=== PATIENT | male | born 1930 | race Caucasian/White ===

== ENCOUNTER 2018-05-18 12:48 | Day surgery (SDC) | payer OTHER ==
[~2018-05-18] VITALS: Ht 165.1 cm; Wt 70.3 kg
[2018-05-18] MEDS ORDERED: ALLO100 (15:23)
[2018-05-18] MEDS ORDERED: METO25ER (15:23)
[2018-05-18] MEDS ORDERED: TIOT18 (15:24)
[2018-05-18] MEDS ORDERED: FURO100EL (15:24)
[2018-05-18] MEDS ORDERED: BENZ100A (15:24)
[2018-05-18] MEDS ORDERED: TRAM50 (15:24)
[2018-05-18] MEDS ORDERED: GUAI600T33 (15:24)
[2018-05-18] MEDS ORDERED: ATOR10 (15:24)
[2018-05-18] MEDS ORDERED: NITR6.5ER (15:25)
[2018-05-18] MEDS ORDERED: POLYOX WSR-3011 GM (15:25)
[2018-05-18] MEDS ORDERED: XARELTO1 EACH (15:25)
[2018-05-18] MEDS ORDERED: ALBU2.5V5 (15:25)
== END 2018-05-18 16:29 | disposition home or self-care (01) ==
LOC: ORSCSDS 12:48
PROVIDERS: Ophthalmology
PROC: 08RJ3JZ Replacement of Right Lens with Synthetic Substitute, Percutaneous Approach (ICD-10-PCS; principal; 2018-05-18 14:00)
DX: H25.11 Age-related nuclear cataract, right eye (principal); I10 Essential (primary) hypertension; I25.10 Atherosclerotic heart disease of native coronary artery without angina pectoris; I48.91 Unspecified atrial fibrillation; Z95.0 Presence of cardiac pacemaker; E10.36 Type 1 diabetes mellitus with diabetic cataract; J44.9 Chronic obstructive pulmonary disease, unspecified; Z87.891 Personal history of nicotine dependence; Z79.899 Other long term (current) drug therapy; Z79.4 Long term (current) use of insulin
CPT/HCPCS: 82947; J1815; J2250; J3010; J7120; V2632